=== PATIENT | male | born 1965 | race Hispanic/Latino ===

== ENCOUNTER 2020-11-20 22:58 | Emergency (ER) | payer OTHER ==
[~2020-11-20] VITALS: Ht 167.6 cm; Wt 98.4 kg
[2020-11-20 23:01] VITALS: BP 173/91
[2020-11-20 23:34] LABS: BASOPHILS % (AUTO) 0.5 % (0.0-5.0); EOSINOPHILS % (AUTO) 1.6 % (0.0-8.0); HEMATOCRIT 45.8 % (42-54); MEAN CORPUSCULAR HEMOGLOBIN 28.7 pg (27.0-33.0); MEAN CORPUSCULAR HGB CONC 32.8 g/dL (32.0-36.0); MEAN CORPUSCULAR VOLUME 87.6 fL (79-99); NEUTROPHILS % (AUTO) 78.5 % (40.0-77.0); PLATELET COUNT (AUTO) 350 K/uL (130-400); RED BLOOD CELL COUNT(AUTO) 5.23 MIL/uL (4.50-6.20); RED CELL DISTRIBUTION WIDTH 12.6 % (11.0-15.5); WHITE BLOOD COUNT (AUTO) 12.9 K/uL (4.8-10.8)
[2020-11-20 23:38] LABS: AMPHET/METH SCREEN,URINE NEGATIVE (NEGATIVE); BARBITURATE SCREEN, URINE NEGATIVE (NEGATIVE); BENZODIAZEPINES SCREEN,URINE NEGATIVE (NEGATIVE); CANNABINOID SCREEN,URINE NEGATIVE (NEGATIVE); COCAINE SCREEN,URINE NEGATIVE (NEGATIVE); OPIATE SCREEN,URINE NEGATIVE (NEGATIVE); PHENCYCLIDINE SCREEN,URINE NEGATIVE (NEGATIVE)
[2020-11-20 23:45] LABS: CREATININE 1.3 mg/dL (0.5-1.5); POTASSIUM 3.7 mmol/L (3.5-5.1)
[2020-11-20 23:47] LABS: BILIRUBIN,URINE Negative (NEGATIVE); COLOR,URINE Yellow (YELLOW); GLUCOSE, URINE (UA) Negative (NEGATIVE); KETONES,URINE Trace mg/dL (NEGATIVE); LEUKOCYTE ESTERASE ,URINE Negative (NEGATIVE); NITRATE,URINE Negative (NEGATIVE); OCCULT BLOOD,URINE Large (NEGATIVE); PH,URINE 5.5 (5.0-8.0); PROTEIN,URINE POS 2+ mg/dL (NEGATIVE)
[2020-11-20 23:48] LABS: APPEARANCE,URINE CLOUDY (CLEAR)
[2020-11-20 23:49] LABS: BILIRUBIN,TOTAL 0.6 mg/dL (0.2-1.0); TOTAL PROTEIN, SERUM 8.1 g/dL (6.0-8.3)
[2020-11-20 23:51] LABS: BACTERIA,URINE None Seen /HPF (None Seen); CALCIUM OXALATE CRYSTALS,UR Rare /LPF (None Seen); MUCUS,URINE Few LPF (None Seen); RBC,URINE 26-50 /HPF (0-1); SQUAMOUS EPITHELIAL CELL,UR Few /HPF (0-2); WBC,URINE 0-1 /HPF (0-1)
[2020-11-21] MEDS ORDERED: 0.9%NACL 1000ML 1,000 ML IV ONE (00:30)
[2020-11-21] MEDS ORDERED: ONDANSETRON 4MG INJ IVP ONE (00:30)
[2020-11-21] MEDS ORDERED: KETOROLAC 30MG VIAL (30MG/ML) IM ONE (00:30)
[2020-11-21 02:12] VITALS: BP 128/73
[2020-11-21] MEDS ORDERED: DICYCLOMINE HCL 20 MG TAB PO SCH (02:30)
[2020-11-21] MEDS ORDERED: TAMSULOSIN HCL 0.4 MG CAP.ER.24H PO SCH (02:30)
[2020-11-21] MEDS ORDERED: ONDA4TAB10 PO (02:34)
[2020-11-21] MEDS ORDERED: METO-296 PO (02:34)
[2020-11-21] MEDS ORDERED: TAMS-1 PO (02:34)
[2020-11-21] MEDS ORDERED: MELO7.5T12 PO (02:34)
[2020-11-21] MEDS ORDERED: DICY20TA2 PO (02:34)
[2020-11-21] MEDS ORDERED: TAMSULOSIN HCL 0.4 MG CAP.ER.24H ONE (02:39)
[2020-11-21] MEDS ORDERED: DICYCLOMINE HCL 20 MG TAB ONE (02:40)
== END 2020-11-21 02:58 | disposition home or self-care (01) ==
LOC: EDH 22:58
DX: N20.1 Calculus of ureter (principal); E86.0 Dehydration; R11.2 Nausea with vomiting, unspecified; I10 Essential (primary) hypertension; Z79.899 Other long term (current) drug therapy; Z79.1 Long term (current) use of non-steroidal anti-inflammatories (NSAID)
CPT/HCPCS: 36415; 74176; 80053; 80305; 81001; 82150; 83690; 85025; 96361; 96372; 96374; 99285; J1885; J2405